=== PATIENT | male | born 1995 | race Caucasian/White ===

== ENCOUNTER 2023-07-29 14:15 | Outpatient (CLI) | payer OTHER ==
--- NOTE | 2023-07-30 01:55 | XRAY Report ---
PROCEDURE: Ribs w/PA Chest 3+V RT INDICATIONS: RIB PAIN, RIGHT SIDED TECHNIQUE: 2 views of the ribs were acquired, along with a single view chest. COMPARISON: None. FINDINGS: Surgical changes and devices: None. Bones and chest wall: Right distal nondisplaced fifth rib fracture Lungs and pleura: No pleural effusions or pneumothorax. Lungs appear clear. Mediastinum: Mediastinal contours appear normal. Heart size is normal. IMPRESSION: Right fifth rib fracture, nondisplaced Reviewed by: Nick Frank MD on 07/30/2023 12:54 AM [facility]DT Approved by: Nick Frank MD on 07/30/2023 12:54 AM AKDT Station ID: [id number]
== END 2023-07-29 14:30 | disposition home or self-care (01) ==
LOC: DI.N 14:15
PROVIDERS: ATTEND Nurse Practitioner
DX: S22.31XA Fracture of one rib, right side, initial encounter for closed fracture (principal)